=== PATIENT | male | born 1960 | race Caucasian/White ===

== ENCOUNTER 2016-11-07 23:33 | Emergency (ER) | payer OTHER ==
[2016-11-08] MEDS ORDERED: HYDROCODONE/ACETAMINOPHEN 5/325MG TABLET ONE (01:18)
[2016-11-08] MEDS ORDERED: PENICILLIN V POTASSIUM 500 MG TABLET ONE (01:18)
== END 2016-11-08 01:39 | disposition home or self-care (01) ==
LOC: ED 23:33
DX: K04.7 Periapical abscess without sinus (principal)
CPT/HCPCS: 99283 ×2; A9270 ×2